=== PATIENT | female | born 1995 | race Native Hawaiian/Other Pacific Islander ===

== ENCOUNTER 2023-05-28 10:40 | Emergency (ER) | payer OTHER ==
[~2023-05-28] VITALS: Ht 162.6 cm; Wt 149.7 kg
[2023-05-28 10:43] VITALS: BP 162/95; TEMP 98.4
== END 2023-05-28 13:20 | disposition home or self-care (01) ==
LOC: ED 10:40
DX: N39.0 Urinary tract infection, site not specified (principal); M54.6 Pain in thoracic spine
CPT/HCPCS: 81000; 81025; 87077; 87086; 87088; 87186; 96372; 99283; J1885